=== PATIENT | female | born 1995 | race African-American/Black ===

== ENCOUNTER 2020-10-20 14:33 | Emergency (ER) | payer OTHER, BC, SELFPAY ==
[2020-10-20 14:43] VITALS: BP 121/77; PULSE 89; RESP 16; TEMP 36.4; O2SAT 100
--- NOTE | 2020-10-20 14:44 | ED.GENADULT ---
HPI - General Adult General Chief complaint: Extremity Injury, Upper Stated complaint: L SHOULDER PAIN Time Seen by Provider: 10/20/20 14:44 Source: patient Mode of arrival: ambulatory Limitations: no limitations History of Present Illness HPI narrative: 25-year-old female patient presents to the [facility] with complaints of left shoulder pain for the past 2 weeks. Patient states she woke up 1 morning with shoulder pain. Denies any injury. Patient denies any numbness or tingling down the arm or decrease in strength to the hand. Patient denies taking anything for the pain for last 2 weeks. Patient states the pain got increasingly worse worse last night was hard to fall asleep. Patient states she did use some icy hot to the shoulder area couple of times but that has been it. Related Data Allergies Allergy/AdvReac Type Severity Reaction Status Date / Time No Known Allergies Allergy Unverified 03/31/19 15:55 Review of Systems Review of Systems: Narrative: CONSTITUTIONAL: Denies fever, chills, or sweats. EYES: Denies visual changes, redness, or discharge. ENT: Denies rhinorrhea, congestion, sore throat, or otalgia. CARDIOVASCULAR: Denies chest pain, palpitations, or edema. RESPIRATORY: Denies cough or dyspnea. GASTROINTESTINAL: Denies abdominal pain, nausea, vomiting, or diarrhea. GENITOURINARY: Denies dysuria or hematuria. SKIN: Denies rash or itching. MUSCULOSKELETAL: Denies back pain, joint pain, or myalgia. Positive left shoulder pain NEUROLOGIC: Denies headache, numbness, or weakness. PSYCHIATRIC: Denies anxiety or depression. PMFSH Comments At the time of my signature I agree with nursing past medical history, surgical, social, and family history. There is no relevant family history pertinent to the presenting complaint. Exam Narrative: Exam Narrative: GENERAL: Well-appearing, well-nourished, and in no acute distress. HEAD: Normocephalic, atraumatic. EYES: PERRLA and EOMI. ENT: Nares clear, no rhinorrhea or epistaxis. Mucous membranes moist. NECK: Supple. No lymphadenopathy CHEST: Clear to auscultation. No respiratory distress. HEART: Regular rate and rhythm. No murmur heard. Normal peripheral pulses. ABDOMEN: Soft, nontender, nondistended, normal active bowel sounds. EXTREMITIES: The L shoulder is without obvious asymmetry or deformity when compared to the R shoulder. No surface trauma, ecchymosis, crepitus. No bony deformity or prominence of the humeral head No erythema, warmth, swelling. no tenderness to palpation to clavicle, A to C joint, acromion, scapula or humeral head. No tenderness to palpation of the bicipital groove or soft tissues. No tenderness to palpation of the muscles of the sterncleidomastoid, pectorals, biceps/triceps, deltoid, trapezius, rhomboid, latissimus dorsi, rotator cuff. No pain or limitation with active or passive abduction/adduction, internal/external rotation, flexion/extension. Negative empty can and drop arm test (rotator cuff). No axillary tenderness or lymphadenopathy. Normal sensation over the deltoid and ability to flex arm at elbow indicates intact axillary nerve function. Distal motor and neurovascular status is intact. SKIN: Warm, dry, no rash. NEURO: No focal deficits. Alert and oriented x3. Course Course Emergency Course: Differential diagnosis: Neurovascular compromise, anterior shoulder dislocation, posterior dislocation, facture, AC separation, shoulder cuff tear, bursitis, tendinitis Cussed with patient that since she has had no specific injury and she has no tenderness to any of the bones in the shoulder I do not think we need to do an x-ray at this time. Highly recommend patient take some ibuprofen for it should help with any inflammation that could be going on and should help with her pain. Discussed with patient I would still encourage some icy hot and a heating pad to the area as well as some gentle stretching exercises. Discussed with patient that if she continues to have
== END 2020-10-20 14:56 | disposition home or self-care (01) ==
PROVIDERS: Emergency Provider Nurse Practitioner Family
DX: S46.912A Strain of unspecified muscle, fascia and tendon at shoulder and upper arm level, left arm, initial encounter (principal); X58.XXXA Exposure to other specified factors, initial encounter
CPT/HCPCS: 99212; G0463

== ENCOUNTER 2022-02-20 20:53 | Emergency (ER) | payer OTHER, BC, SELFPAY ==
[2022-02-20 20:56] VITALS: BP 116/80; PULSE 122; RESP 14; TEMP 37.5; O2SAT 100
--- NOTE | 2022-02-20 22:25 | PC.NURSE ---
Pt stated she was leaving at this time. A/O x 4. Speech clear. ambulatory out of ED c steady, even, unassisted gait. No s/s of distress.
== END 2022-02-20 22:42 | disposition left against medical advice (07) ==
LOC: ANHED 22:32
DX: R05.9 Cough, unspecified (principal)
CPT/HCPCS: 99199

== ENCOUNTER 2022-04-19 11:48 | Outpatient (CLI) | payer OTHER, BC, SELFPAY ==
[2022-04-19 13:01] LABS: Hepatitis B Surface Antigen Negative (Negative)
[2022-04-19 13:05] LABS: HIV 1/2 Ab P24 Ag Result Negative (Negative)
[2022-04-19 13:07] LABS: HAV RESULT Negative (Negative); Hepatitis B Core IgM Result Negative (Negative)
[2022-04-19 13:18] LABS: Hepatitis C Virus Antibody Negative (Negative)
[2022-04-20 05:54] LABS: Rapid Plasma Reagin Non-Reactive (NonReactive)
[2022-04-23 21:01] LABS: Herpes Simplex Type 1 DNA PCR NOT DETECTED; Herpes Simplex Type 2 DNA PCR NOT DETECTED
== END 2022-04-19 11:49 | disposition home or self-care (01) ==
LOC: ANHLAB 11:52
PROVIDERS: Visit Provider Obstetrics & Gynecology
DX: Z11.3 Encounter for screening for infections with a predominantly sexual mode of transmission (principal)
CPT/HCPCS: 36415; 80074; 86592; 86703; 87529; G0432